=== PATIENT | male | born 1980 | race African-American/Black ===

== ENCOUNTER 2022-08-03 12:48 | Emergency (ER) | payer MEDICAID ==
[~2022-08-03] VITALS: Ht 185.4 cm; Wt 83.9 kg
--- NOTE | 2022-08-03 12:58 | NUR ---
assume patient care, [place] [address] to [facility] 18 c/o suicidal ideation w/ plan to run into traffic. denies homicidal ideation. requesting voluntary psychiatric admission to [facility]. pt is cooperative to staff. security called for wanding, belongings to safe locker. awaiting md rey.
--- NOTE | 2022-08-03 12:59 | NUR ---
dr latham at bedside for eval.
--- NOTE | 2022-08-03 13:13 | NUR ---
earthmoving labourer at bedside for blood draw.
[2022-08-03 13:20] LABS: BASOPHILS % (AUTO) 0.6 % (0.0-2.0); HEMATOCRIT 45 % (39-51); HEMOGLOBIN 14.8 g/dL (13.5-17.5); LYMPHOCYTES % (AUTO) 27.2 % (20.0-44.0); MEAN CORPUSCULAR HGB CONC 33 g/dl (31.0-36.0); MEAN CORPUSCULAR VOLUME 96 fL (80-96); MONOCYTES # (AUTO) 0.8 K/uL (0.1-1.30); MONOCYTES % (AUTO) 10.7 % (2.0-12.0); NEUTROPHILS # (AUTO) 4.3 K/uL (1.8-8.9); NEUTROPHILS % (AUTO) 58.5 % (43.0-81.0); PLATELET COUNT (AUTO) 412 K/uL (150-450); RED BLOOD CELL COUNT(AUTO) 4.69 MIL/uL (4.5-6.0); WHITE BLOOD COUNT (AUTO) 7.4 K/uL (4.3-11.0)
[2022-08-03 13:47] LABS: ALANINE AMINOTRANSFERASE 60 U/L (12-78); ALBUMIN 3.7 g/dL (3.4-5.0); ALKALINE PHOSPHATASE 90 U/L (46-116); ASPARTATE AMINOTRANSFERASE 30 U/L (15-37); BILIRUBIN,DIRECT 0.1 mg/dL (0.0-0.2); BILIRUBIN,TOTAL 0.3 mg/dL (0.2-1.0); CALCIUM, SERUM 9.4 mg/dL (8.5-10.1); CARBON DIOXIDE 31 mmol/L (21-32); CHLORIDE 100 mmol/L (98-107); GLUCOSE 106 mg/dL (74-106); POTASSIUM 4.2 mmol/L (3.5-5.1); SODIUM SERUM 134 mmol/L (136-145); TOTAL PROTEIN, SERUM 8.3 g/dL (6.4-8.2); UREA NITROGEN, BLOOD 16 mg/dL (7-18)
[2022-08-03 13:48] LABS: BILIRUBIN,URINE NEGATIVE (NEGATIVE); COLOR,URINE YELLOW (YELLOW); LEUKOCYTE ESTERASE ,URINE NEGATIVE (NEGATIVE); NITRITE, URINE NEGATIVE (NEGATIVE); PROTEIN,URINE NEGATIVE (NEGATIVE); UGLUCOSE NEGATIVE (NEGATIVE); UROBILINOGEN,URINE 0.2 EU/dL (0.2)
[2022-08-03 15:59] LABS: BACTERIA,URINE None seen /HPF (None Seen); SQUAMOUS EPITHELIAL CELL,UR 0-2 /HPF (None Seen); WBC,URINE 0-2 /HPF (0-3)
[2022-08-03 16:23] LABS: ALCOHOL, BLOOD < 3 mg/dL (0-0)
--- NOTE | 2022-08-03 17:38 | NUR ---
COVID SPECIMEN COLLECTED AND SENT TO LAB.
--- NOTE | 2022-08-04 00:16 | NUR ---
FAXED [facility] TO [facility]
--- NOTE | 2022-08-04 00:53 | NUR ---
PT NOT ACCEPTED TO [facility] DUE TO INSURANCE
--- NOTE | 2022-08-04 02:44 | NUR ---
CALLED [facility] FOR TRANSFER PER PT'S REQUEST. INTAKE IS CLOSED.
--- NOTE | 2022-08-04 06:39 | NUR ---
PER [facility] INTAKE PT ACCEPTED TO [facility]; AWAITING FOR INSURANCE TO BE APPROVED
--- NOTE | 2022-08-04 10:48 | NUR ---
RE-FAXED COVID RESULT TO [facility].
--- NOTE | 2022-08-04 11:17 | NUR ---
PT ACCEPTED AT [facility] [address] [phone] FOR REPORT.
--- NOTE | 2022-08-04 11:19 | NUR ---
[facility] CALLED FOR TRANSPORT ETA 45 MINS
[2022-08-04 11:22] VITALS: BP 138/86
--- NOTE | 2022-08-04 11:32 | NUR ---
REPORT GIVEN TO LYSSA Pretty AT [facility]. [phone]
== END 2022-08-04 13:00 ==
LOC: ER 12:54
DX: F23 Brief psychotic disorder (principal); R45.851 Suicidal ideations; F19.10 Other psychoactive substance abuse, uncomplicated; Z20.822 Contact with and (suspected) exposure to COVID-19; F15.10 Other stimulant abuse, uncomplicated; Z59.00 Homelessness unspecified
CPT/HCPCS: 99285; 85025; 80048; 80076; 81001; 36415; 87426; 80143; 80320; 80307; C9803; G0480